=== PATIENT | male | born 1945 ===

== ENCOUNTER 2017-11-02 11:19 | Outpatient (CLI) | payer OTHER ==
[2017-11-02] MEDS ORDERED: MEPERIDINE 25 MG/ML SYR IVP PRN (11:46)
[2017-11-02] MEDS ORDERED: ONDANSETRON 4 MG/2 ML VIAL IVP ONE (11:46)
[2017-11-02] MEDS ORDERED: FLUMAZENIL 0.5 MG/5 ML MDV IVP PRN (11:46)
[2017-11-02] MEDS ORDERED: MIDAZOLAM 2 MG/2 ML VIAL IVP PRN (11:46)
[2017-11-02] MEDS ORDERED: NALOXONE HCL 0.4 MG/ML INJ IVP PRN (11:46)
[2017-11-02] MEDS ORDERED: fentaNYL 100 MCG/2 ML INJ IVP PRN (11:46)
[2017-11-02] MEDS ORDERED: fentaNYL 100 MCG/2 ML INJ ONE (11:50)
[2017-11-02] MEDS ORDERED: MIDAZOLAM 2 MG/2 ML VIAL ONE (11:50)
[2017-11-02] MEDS ORDERED: NALOXONE HCL 0.4 MG/ML INJ ONE (11:50)
[2017-11-02] MEDS ORDERED: FLUMAZENIL 0.5 MG/5 ML MDV IVP ONE (11:50)
[2017-11-02] MEDS ORDERED: NS 1,000 ML IV SCH (12:00)
[2017-11-02 12:21] LABS: PLATELET COUNT 233 10^3/uL (150-400)
--- NOTE | 2017-11-02 12:37 | PDGENHP ---
History & Physical Chief Complaint: tremor History of Present Illness: tremor Cardiorespiratory Assessment: lungs clear, heart rate regular
--- NOTE | 2017-11-02 12:38 | PDPROPOC ---
Sedation Plan of Care Sedation Plan of Care: vital signs stable, mental status noted, patient educated of risks, benefits, alternatives, patient can tolerate sedation ASA Classification: ASA 1 Planned drugs: fentanyl, midazolam Mallampati Score: Class 2 Mallampati Reference Image: Patient passed 3-3-2 rule?: Yes
[2017-11-02] MEDS ORDERED: GADOBUTROL 10 ML VIAL IVP ONE (12:50)
[2017-11-02 13:58] VITALS: BP 137/72
== END 2017-11-02 14:05 | disposition home or self-care (01) ==
LOC: FIMAGING 11:19
PROVIDERS: ATTEND Physician Assistant Surgical
DX: G31.9 Degenerative disease of nervous system, unspecified (principal); R90.82 White matter disease, unspecified
CPT/HCPCS: 70553; 99152; A9585; J2250; J3010; J2310

== ENCOUNTER 2017-11-10 05:50 | Inpatient (IN) | payer OTHER ==
--- NOTE | 2017-11-01 16:38 | GHP ---
[f rep st] HISTORY AND PHYSICAL DATE OF ADMISSION: 11/10/2017 DATE OF SURGERY: November 10. HISTORY OF PRESENT ILLNESS: The patient is a 71-year-old male with essential tremor. He has had his tremor for 35-40 years. The tremor is primarily in the left arm and rarely in the right arm. The tremor is worse with stress, aggravation, and movement. He denies rigidity or bradykinesia. He currently takes primidone for tremor control. Medication is still somewhat effective. He is right-handed but states his left-hand tremor is worse and prevents him from completing his daily activities with ease. PAST MEDICAL HISTORY: Type 2 diabetes, hypertension, melanoma, heart disease. PAST SURGICAL HISTORY: Prostate surgery, foot surgery, anorectal abscess, removal of melanoma, appendectomy. FAMILY HISTORY: The patient admits to heart disease. SOCIAL HISTORY: The patient denies alcohol use and admits to being a former smoker. He quit 38 years ago. ALLERGIES: Metformin. HOME MEDICATIONS: Primidone, lisinopril, hydralazine, multivitamin, glipizide, gemfibrozil, Bystolic, aspirin. REVIEW OF SYSTEMS: Negative except for what is mentioned in the HPI. PHYSICAL EXAM: Patient seen, examined, appears in no apparent distress. Mood and affect are appropriate. Alert and oriented. Pupils equal and reactive. Extraocular movements are intact. Facial expression is symmetrical. Tongue is midline with protrusion. Hearing is grossly intact. Speech is fluent without dysarthria. Muscle strength is well preserved in his upper and lower extremities with 5/5. Sensation is intact to light touch. He has left greater than right hand intention tremor. ASSESSMENT AND PLAN: In summary, the patient is a 71-year-old male with essential tremor. He has been deemed a suitable candidate to proceed with deep brain stimulation for improvement of his tremor. He has had a neuropsychological evaluation by Dr. Domínguez who did not find any contraindications. The patient is right-handed, but his left-hand tremor prevents him from easily performing his daily activities. We, therefore, have decided to move forward with unilateral deep brain stimulation, treating the left hand first with placement of a right deep brain stimulation lead. The risks, benefits, and procedure were discussed in detail with the patient. The patient has agreed and consented to proceed with right deep brain stimulation VIM lead placement. All the patient's questions and concerns were addressed and answered. /[id number]/MODL MTDD
[2017-11-10] MEDS ORDERED: CEFUROXIME 1,500 MG in STERILE WATER INJ 17 ML IV ONE ×2 (06:00→10:30)
[2017-11-10] MEDS ORDERED: LIDOCAINE 1% 2 ML INJ ID PRN (06:03)
[2017-11-10] MEDS ORDERED: LR 1,000 ML IV ONE (06:03)
[2017-11-10 07:23] LABS: PLATELET COUNT 188 10^3/uL (150-400)
[2017-11-10] MEDS ORDERED: EPINEPHrine 1 MG/ML INJ ONE (07:29)
[2017-11-10] MEDS ORDERED: BUPIVACAINE 0.25% 30 ML SDV ONE (07:29)
[2017-11-10] MEDS ORDERED: THROMBIN (BOVINE) 20,000 UNIT VIAL TP ONE (07:30)
[2017-11-10] MEDS ORDERED: GENTAMICIN SULFATE 80 MG/2 ML VIAL ONE (07:30)
[2017-11-10] MEDS ORDERED: POVIDONE-IODINE 30 GM OINTTUBE TP ONE (07:30)
[2017-11-10] MEDS ORDERED: CHLORHEXIDINE GLUC HIBICLENS 118 ML BTL TP ONE (07:30)
[2017-11-10 07:39] LABS: PROTIME(PATIENT) 13.4 SEC (12.0-15.0)
--- NOTE | 2017-11-10 07:39 | PDHPUP ---
History & Physical Update H&P update statement: This history and physical update is based on an assessment of the patient which was completed after admission or registration (within 24 hours), but prior to the surgery/procedure. H&P update: H&P reviewed & patient examined, no change in patient's condition since H&P completed
--- NOTE | 2017-11-10 07:56 | PDANEPAE ---
ANE Past Medical History - Cardiovascular History Hx Hypertension: Yes Hx Arrhythmias: No Hx Chest Pain: No Hx Coronary Artery / Peripheral Vascular Disease: No Hx CHF / Valvular Disease: No Hx Palpitations: No Cardiovascular History Comment: seen at [facility]- will obtain records - Pulmonary History Hx COPD: No Hx Asthma/Reactive Airway Disease: No Hx Recent Upper Respiratory Infection: No Hx Oxygen in Use at Home: No Hx Sleep Apnea: No Sleep Apnea Screening Result - Last Documented: Positive Pulmonary History Comment: greta triggers - Neurologic History Hx Cerebrovascular Accident: No Hx Seizures: No Hx Dementia: No Neurologic History Comment: left arm- essential tremor. unable to use left hand - Endocrine History Hx Diabetes: Yes Hypothyroid: No Hyperthyroid: No Obesity: yes, mild Endocrine History Comment: Type 2 - Renal History Hx Renal Disorders: No Renal History Comment: bph. hx of surgery to remove scar tissue - Liver History Hx Hepatic Disorders: No - Neurological & Psychiatric Hx Hx Neurological and Psychiatric Disorders: No - Cancer History Hx Cancer: Yes Cancer History Comment: Melanoma mole removal - Congenital Disorder History Hx Congenital Disorders: No - GI History GERD: no Hx Gastrointestinal Disorders: No - Other Health History Other Health History: wears reading glasses - Chronic Pain History Chronic Pain: No - Surgical History Prior Surgeries: Appendectomy 10/1980. Melanoma mole removal- 06/1990, 2000. Rectal abscess 08/2007. Plantar fasciitis surgery right foot 01/2010; left foot 03/2016. Cataract surgery b/l eyes 10/2014. Prostate surgery 01/2017 ANE Review of Systems Review of Systems: - Exercise capacity METS (RN): 4 METS - Systems Constitutional: Reports: no symptoms EENMT: Reports: no symptoms Cardiac: Reports: no symptoms Respiratory: Reports: no symptoms Gastrointestinal: Reports: no symptoms Genitourinary: Reports: no symptoms Muscolosketal: Reports: no symptoms Skin: Reports: no symptoms Neurological: Reports: tremors Hematologic/Lymphatic: Reports: no symptoms Immunologic/Allergy: Reports: no symptoms ANE Patient History - Allergies Allergies/Adverse Reactions: metformin Allergy (Severe, Verified 10/25/17 13:30) acid reflux and heartburn - Home Medications Home Medications: Aspirin EC [Aspirin EC 81 mg (*)] 81 mg PO DAILY 11/10/17 [Last Taken 11/01/17] C/E/Zn/Cu/OM3/DHA/EPA/LUT/ZEAX [Preservision Areds 2 Softgel] 1 each PO BID 05/20 [Last Taken 11/09/17 20:00] Gemfibrozil [Lopid 600 MG (*)] 600 mg PO BID 11/10/17 [Last Taken 11/09/17 20:00 ] Herbals/Supplements -Info Only 1 ea PO DAILY 11/10/17 [Last Taken Unknown] Lisinopril [Zestril 40 mg (*)] 40 mg PO DAILY 11/10/17 [Last Taken 11/09/17] Nebivolol HCl [Bystolic] 10 mg PO BID 11/10/17 [Last Taken 11/09/17 20:00] Primidone [Mysoline 50mg (RX)] 50 mg PO BID 11/10/17 [Last Taken 11/03/17] glipiZIDE [Glipizide ER] 5 mg PO HS 11/10/17 [Last Taken 11/09/17] hydrALAZINE [Apresoline 50 mg (*)] 50 mg PO TID 11/10/17 [Last Taken 11/10/17 04 :30] - NPO status NPO Since - Liquids (Date): 11/09/17 NPO Since - Liquids (Time): 20:30 NPO Since - Solids (Date): 11/09/17 NPO Since - Solids (Time): 17:00 - Anes Hx Anes Hx: no prior problems - Smoking Hx Smoking Status: Never smoked Marijuana use: No - Family Anes Hx Family Anes Hx: neg - N/A Family Hx Anesthesia Complications: None ANE Labs/Vital Signs - Labs Result Diagrams: 11/10/17 Unknown 11/10/17 07:00 - Vital Signs Blood Pressure: 144/70 Heart Rate: 55 Respiratory Rate: 18 O2 Sat (%): 94 Height: 180.34 cm Weight: 106.594 kg ANE Physical Exam - Airway Neck exam: FROM Mallampati Score: Class 3 Mouth exam: normal dental/mouth exam - Pulmonary Pulmonary: no respiratory distress, no rales or rhonchi, clear to auscultation - Cardiovascular Cardiovascular: regular rate and rhythym, no murmur, rub, or gallop - ASA Status ASA Status: III ANE Anesthesia Plan Anesthesia Plan: MAC Lines/Monitors: arterial line Total IV Anesthesia: Yes
[2017-11-10] MEDS ORDERED: PROPOFOL 200 MG/20 ML VIAL ONE (08:19)
[2017-11-10] MEDS ORDERED: fentaNYL 100 MCG/2 ML INJ ONE ×2 (08:19→12:21)
[2017-11-10] MEDS ORDERED: DEXMEDETOMIDINE HCL 400 MCG in NS 100 ML IV ONE (08:30)
[2017-11-10] MEDS ORDERED: LIDOCAINE 2% 5 ML SDV ONE (08:32)
[2017-11-10] MEDS ORDERED: epHEDrine SULFATE 10 MG/ML SYR ONE ×3 (08:58→11:23)
[2017-11-10] MEDS ORDERED: epHEDrine SULFATE 10 MG/ML SYR IVP PRN (09:25)
[2017-11-10] MEDS ORDERED: ONDANSETRON 4 MG/2 ML VIAL IVP PRN ×2 (09:25→12:17)
[2017-11-10] MEDS ORDERED: NALOXONE HCL 0.4 MG/ML INJ IVP PRN (09:25)
[2017-11-10] MEDS ORDERED: LR 500 ML IV PRN (09:25)
[2017-11-10] MEDS ORDERED: HYDROCODONE/APAP 5/325 TAB PO PRN (09:25)
[2017-11-10] MEDS ORDERED: PHENYLEPHRINE HCL 100 MCG/ML SYR IVP PRN (09:25)
[2017-11-10] MEDS ORDERED: ACETAMINOPHEN 500 MG TAB PO PRN (09:25)
[2017-11-10] MEDS ORDERED: LACTULOSE 20 GM/30 ML UDCUP PO PRN (12:17)
[2017-11-10] MEDS ORDERED: MAGNESIUM HYDROXIDE 30 ML UDCUP PO PRN (12:17)
[2017-11-10] MEDS ORDERED: BISACODYL 10 MG SUPP PR PRN (12:17)
[2017-11-10] MEDS ORDERED: POLYETHYLENE GLYCOL 3350 17 GM PKT PO PRN (12:17)
[2017-11-10] MEDS ORDERED: ACETAMINOPHEN 325 MG TAB PO PRN (12:17)
[2017-11-10] MEDS ORDERED: NS W/ 20 KCl/L 1,000 ML IV SCH (12:30)
--- NOTE | 2017-11-10 13:10 | POSTANESTH ---
Post Anesthetic Evaluation Cardiovascular Status: Similar to Pre-Op Cond Respiratory Status: Normal, Stable Level of Consciousness/Mental Status: Can Participate in Eval Pain Control: Adequate, Prn Tx Ordered Nausea/Vomiting Control: Adequate, Prn Tx Ordered Complications Possibly Related to Anesthesia: None Noted
[2017-11-10] MEDS ORDERED: ACETAMINOPHEN 500 MG TAB ONE (13:11)
--- NOTE | 2017-11-10 13:20 | GOP ---
[f rep st] OPERATIVE REPORT DATE OF OPERATION: 11/10/2017 SURGEON: Celsa Parks DO NEUROSURGEON: Celsa Parks DO YARN WEIGHT AND STRENGTH TESTER: Faviola Simon PA-C PREOPERATIVE DIAGNOSIS: Essential tremor. POSTOPERATIVE DIAGNOSIS: Essential tremor. PROCEDURE PERFORMED: Right deep brain stimulator lead placement with [place] lead to right v entral intermediate nucleus for left tremor. FINDINGS: SPECIMENS: None. ESTIMATED BLOOD LOSS: 25 mL. INDICATIONS: This is a 71-year-old male with 30 years of benign essential tremor. He was evaluated by the multidisciplinary planning team and found to be a good candidate for deep brain stimulation to the VIM nucleus. DESCRIPTION OF PROCEDURE: He was identified and consented. Sites were marked. Brought to the [facility] room. Anesthetized under local with MAC. Hair was clipped with the OR clippers. The head was cleansed with ChloraPrep. The pin sites were anesthetized with 0.25% Marcaine with epinephrine. The pins were cleansed with povidone iodine ointment. We placed the [place]ell frame in a stereotactic fas hion and brought him downstairs. Performed a stereotactic CT with a localizer box. Brought him back upstairs. Positioned him appropriately on the table. Merged the stereotactic CT to the preoperativ e plan in the [employer] software. Stereotactic coordinates: The ACPC distance was 27.11. T he X4 target was 12.43, Y was 6.9, and Z was 0.12. Entry axis was 60.6, Y was 117, and Z was 44.7. Angle was 22.4 degrees off midsagittal and 53.4 off midaxial. This corresponded to Le[place]ell frame aco coordinator rdinates of X of 86.5, Y of 83.5, Z of 120, ring of 66 degrees, and arc of 72.5 degrees. He was prep ped and draped in the usual sterile fashion. These were all set and triple-checked by all providers in the room. The incision site was marked using the Leksell frame coordinates. A half-patterson incision was created and anesthetized with 0.25% Marcaine with epinephrine. An incision was made with a 10 b lade. The periosteum was elevated with a periosteal elevator. Pilar clips were placed. Meticulous hemostasis was obtained with bipolar cautery. We then marked the bone opening, created a barge pilot hole, and then a 14 mm bur hole in the appropriate fashion. Waxed these edges with bone wax. Placed the guardian and locked it into place with 5 mm Synthes screws. Verified the clipping mechanism. Clippe d and locked. Opened the dura sharply with an 11 blade, coagulating it. Gently introduced a center and anterior tract cannula, and stylet. Placed Gelfoam and DuraSeal, and then performed microelectro de recording. Please refer to the dictation by Faviola Simon for microelectrode recording. She wa s the business development assistant on this case. She was required, as I needed one person to remain scrubbed well the o ther person performed microelectrode recording. So, I am the american sign language interpreter of the microelectrode recor elinor, and she was able to then home manipulate the settings and stay scrubbed to manage the drive. Ming wilde had excellent center tract. However, when stimming 3 above target, we got some lateral side effect s, so we elected to run a medial tract. We drove all the way up to center. Removed the Gelfoam and DuraSeal. Placed the cannula. The anterior stylet was removed and replaced it in the medial tract. Locked it into place. Removed the internal stylette. Placed a microelectrode. Performed microelec trode recording along this medial track and had a better track with macro stim that did not reveal th ose lateral side effects. We elected to test the lead here. The bottom was placed at target. So, ming wilde drove to target. Removed the microelectrode. Placed the cannula for the center. Measured and nicole ruiz the lead. Tested the lead. All impedances were good. He had actually such a strong lesional ef fect, we had no tremor to test. However, we had low to no side effects. Very programmable lead. El ected to leave the lead here. Placed the bomb sites. Took an x-ray with the bomb sites in place. R etracted the cannula. Placed the clipping mechanism. Clipped and locked the lead. Removed the styl et. Brought the lead down and out, placing it through the groove, and placed the cap over the guardi an system. Took another x-ray. It had not migrated. Placed the extension cap over the lead. Vanessa d into place with the torque wrench, protecting that contact. Tunneled it posterior and coiled the l ead posterior and around the incision. Took a final x-ray. There was no migration. Copiously irrig ated with over a liter of gentamicin-infused saline. Closed the galea with 2-0 Vicryl pop-offs. The skin was closed with a 3-0 running nylon. The wound was dressed with Xeroform and Telfa. Stapled d own. The frame was removed, and the patient's head was wrapped. Tolerated the procedure well. Had excellent lesional effect. There were no complications. FLUIDS: 1300 mL of crystalloid. URINE OUTPUT: 300 mL. DRAINS: None. COMPLICATIONS: None. /[id number]/MODL
[2017-11-10] MEDS: HYDROCODONE/APAP 5/325 TAB PO PRN ×2 (14:36→23:40)
--- NOTE | 2017-11-10 14:40 | PDMN ---
Medical Necessity Medical necessity: [facility] IP only surgery; cpt 15908 Neurosurgery-Deep Brain Stimulator Placement
--- NOTE | 2017-11-10 15:36 | GPN ---
[f rep st] PROCEDURE NOTE DATE OF PROCEDURE: 11/10/2017 PREPROCEDURE DIAGNOSIS: Essential tremor. POSTPROCEDURE DIAGNOSIS: Essential tremor. PROCEDURE PERFORMED: Intraoperative functional subcortical mapping by microelectrode recording and stimulation. COMPLICATIONS: None. INDICATIONS FOR PROCEDURE: Determination of optimal electrode lead placement for deep brain stimulation therapy for essential tremor to the VIM. DESCRIPTION OF PROCEDURE: Following the incision on the right, a bur hole was drilled. The arc was then arranged with the following coordinates: X 86.5, Y 83.5, Z 120, ring 66, arc 72.5. The recording microelectrode was then slowly advanced into the brain using a central and anterior tract. The anterior tract was silent. The center tract, there was evidence of cell bursts at 13 above target and 11 above target. At 7.5 above target, there was change in stimulation with left foot dorsiflexion. At 6.1 above target, there was change in stimulation with elbow extension and possibly change in stimulation with deep touch at the shoulder at 2.5 above target. We elected to then proceed with macro stimulation utilizing the center tract. We stimulated at 3 above target and with low voltage, the patient was experiencing a sudden jolt and tingling on the left side of his body. We therefore decided to go ahead and proceed with macro stimulation at target and patient had persistent tingling at 3.0 amplitude. Due to the low threshold of side effects, we elected to proceed with a medial tract. The microelectrode was advanced into the brain. There was evidence of change in stimulation with elbow extension at 9 above target. With macro stimulation, the patient had transient tingling in his left hand up to 3.0. With these recordings, we felt we were in a good location and thus placed the lead. With test stimulation, the patient had a lesional affect and thus did not have any left hand tremor for us to test during surgery. We therefore tested for side effects alone. At 1 negative, 2 positive, patient had transient tingling starting at 0.5 in his left hand and it became persistent at 2.0, impedance was 1544, at 2 negative, 3 positive, patient began having transient tingling in his left hand at 1.0 and up to 2.00 milliamps, with impedance 1638. At 3 negative, 4 positive, patient had no side effects up to 2.00 milliamps with impedance 1800. At 4 negative, 3 positive, patient had no side effects up to 2.0 milliamps with impedance 1800. With this microelectrode recording, as well as test stimulation, elected to place the lead in this location with the bottom of the lead at target. The patient tolerated the procedure well and was transferred to the recovery room. /[id number]/MODL MTDD
[2017-11-10] MEDS: CEFUROXIME 1,500 MG in STERILE WATER INJ 17 ML IV SCH (16:29)
[2017-11-10] MEDS: hydrALAZINE 20 MG/ML VIAL IVP PRN ×2 (17:22→23:39)
[2017-11-10] MEDS: NEBIVOLOL HCL 5 MG TAB PO SCH (20:02)
[2017-11-10] MEDS: GEMFIBROZIL 600 MG TAB PO SCH (20:02)
[2017-11-10] MEDS: SENNOSIDES/DOCUSATE SODIUM TAB PO SCH (20:03)
[2017-11-10] MEDS ORDERED: NON-FORMULARY NEW DRUG (Nebivolol Hcl [Bystolic] 10 MG) PO SCH (21:00)
[2017-11-11] MEDS: CEFUROXIME 1,500 MG in STERILE WATER INJ 17 ML IV SCH (01:54)
[2017-11-11] MEDS: hydrALAZINE 20 MG/ML VIAL IVP PRN (04:54)
[2017-11-11] MEDS: HYDROCODONE/APAP 5/325 TAB PO PRN ×2 (04:56→09:18)
[2017-11-11] MEDS ORDERED: LISINOPRIL 40 MG TAB PO SCH (09:00)
[2017-11-11] MEDS: SENNOSIDES/DOCUSATE SODIUM TAB PO SCH (09:13)
[2017-11-11] MEDS: NEBIVOLOL HCL 5 MG TAB PO SCH (09:15)
[2017-11-11] MEDS: GEMFIBROZIL 600 MG TAB PO SCH (09:16)
[2017-11-11 09:17] VITALS: BP 159/77
--- NOTE | 2017-11-11 09:29 | NEUSURGPN ---
Assessment/Plan: A: 71 yo M s/p right VIM DBS for ET P: Encourage ambulation Keep SBP <140 - continue home antihypertensives Pain management DC to home later today Call NS with any questions Subjective: Pt resting in bed, had some headache pain this am now improving Objective: AAOx3 NAD VSS MAEx4 Motor 5/5 BUE/BLE Headwrap on +LT Urinary Catheter in Place: No Neurosurgery Physical Exam - Vitals, I&O, Labs I and O 11/10/17 11/11/17 11/12/17 05:59 05:59 05:59 Intake Total 1540 Output Total 800 Balance 740 Weight 106.594 kg Intake: Oral (ml) 240 IV Intake (ml) 1300 Output: Urine (ml) 775 Catheter 300 Urinal 475 Estimated Blood Loss (ml) 25 Other: Intake Quantity Yes Sufficient Vital Signs Temp Pulse Resp BP Pulse Ox 37.2 C 62 16 159/77 H 94 11/11/17 07:24 11/11/17 09:15 11/11/17 07:24 11/11/17 09:16 11/11/17 07:24 Laboratory Results 11/10/17 Unknown 11/10/17 07:00 ICD10 Worksheet Patient Problems: Problems Problem Status Onset Essential tremor Acute - ICD10 Problem Qualifiers (1) Essential tremor
--- NOTE | 2017-11-11 16:26 | ASMTLACE ---
STANLEY Comorbidities - select Answers: Any tumor (including all that apply lymphoma or leukemia) Coronary Artery Disease Diabetes (uncontrolled or controlled) Other Notes: HTN # of Emergency department Answers: 0 visits in the last 6 months Score: 6 Date Signed: 11/11/2017 10:51 AM Electronically Signed By:Lauren Sal RN
[2017-11-11] MEDS ORDERED: glipiZIDE XL 5 MG TAB PO SCH (21:00)
[2017-11-13] MEDS ORDERED: ENOXAPARIN 40 MG/0.4 ML SYR SC SCH (09:00)
--- NOTE | 2017-11-15 13:41 | ASDISCHSUM ---
Discharge Information Plan Status:Home with No Needs Medically Cleared to Leave:11/11/2017 Discharge Date:11/11/2017 CM D/C Disposition:Home, Routine, Self-Care ADT D/C Disposition:Home, Routine, Self-Care Projected Discharge Date:11/11/2017 Transportation at D/C:Family Discharge Delay Reason: Follow-Up Date:11/11/2017 Discharge Slot: Final Diagnosis: Placement Information Patient Contact Information Contact Name:BENJAMIN Relationship:Mahendra Address: Work Phone: City: [place] Phone: State/[employer] Code: Email: Financial Information Financial Class:Medicare Primary Plan Desc:MEDICARE INPATIENT Primary Plan Number:[id number] Secondary Plan Desc:[facility] Secondary Plan Number:[id number] Assessment Information Case Management Discharge Plan Note Case Management Discharge Discharge Order Complete? Answers: Yes Patient to Obtain Answers: via Family Medications Transportation Arranged Answers: Family/Friends Family Notified Answers: Yes Notes: per pt Discharge Comments Notes: 11/11/2017 Case Management Note Met w/pt to discuss d/c needs. Pt lives with Mira who suffers from dementia. Sister in Law Maxine is to stay with pt for approximately one week to assist with recovery. James Haji [phone] is able to transport pt home and provide additional assistance. There are no further case management d/c needs identified. Pt to d/c independent with follow up as directed. Date Signed: 11/11/2017 10:29 AM Electronically Signed By:Lauren Sal RN Intervention Information
--- NOTE | 2017-11-16 14:03 | GDS ---
[f rep st] DISCHARGE SUMMARY ADMITTING DIAGNOSIS: Essential tremor. DISCHARGE DIAGNOSIS: Essential tremor. PROCEDURE: Right deep brain stimulator lead placement on November 10. HOSPITAL COURSE: The patient is a 71-year-old male with 30 years of essential tremor. He elected to proceed with surgical intervention with implant of deep brain stimulation. He underwent surgery by Dr. Celsa Parks on November 10, 2017, with implant of right deep brain stimulator lead. He tolerated the surgery well without complication and was transferred to the floor for further pain management. His postoperative head CT was unremarkable for any acute hemorrhage. On the following morning, he was t olerating a diet, voiding without difficulty, pain controlled, and medically stable, and thus, he was deemed suitable for discharge. He was discharged to home on November 11. DISCHARGE INSTRUCTIONS: The patient was asked to follow up with Dr. Celsa Parks in 2 weeks for sutu re removal and wound check. He is to avoid strenuous activities, such as bending or lifting more bryant n 15 pounds. DISCHARGE MEDICATIONS: The patient was asked to resume his home medications and can take Tylenol or Venus as needed for pain relief. /[id number]/MODL
== END 2017-11-11 11:35 | disposition home or self-care (01) | DRG 27 ==
LOC: F3N 05:50
PROVIDERS: ADMIT Neurological Surgery; ATTEND Neurological Surgery
PROC: 00H03MZ Insertion of Neurostimulator Lead into Brain, Percutaneous Approach (ICD-10-PCS; principal; 2017-11-10 08:15)
DX: G25.0 Essential tremor (principal); E11.9 Type 2 diabetes mellitus without complications; I10 Essential (primary) hypertension; Z87.891 Personal history of nicotine dependence
CPT/HCPCS: C1713; C1778; J0171; J0360; J0697; J1580; J2704; J3010

== ENCOUNTER 2017-12-08 05:38 | Day surgery (SDC) | payer OTHER ==
[2017-12-08] MEDS ORDERED: ceFAZolin 2 GM/DEXTROSE 100 ML IV ONE (06:00)
[2017-12-08] MEDS ORDERED: ACETAMINOPHEN 500 MG TAB PO ONE (06:00)
[2017-12-08] MEDS ORDERED: LR 1,000 ML IV ONE (06:01)
--- NOTE | 2017-12-08 06:39 | PDANEPAE ---
ANE History of Present Illness tremors here for DBS stage 2 ANE Past Medical History - Cardiovascular History Hx Hypertension: Yes Hx Arrhythmias: No Hx Chest Pain: No Hx Coronary Artery / Peripheral Vascular Disease: No Hx CHF / Valvular Disease: No Hx Palpitations: No Cardiovascular History Comment: seen at [facility]- records on paper chart - Pulmonary History Hx COPD: No Hx Asthma/Reactive Airway Disease: No Hx Recent Upper Respiratory Infection: No Hx Oxygen in Use at Home: No Hx Sleep Apnea: Yes Sleep Apnea Screening Result - Last Documented: Positive Pulmonary History Comment: greta triggers - Neurologic History Hx Cerebrovascular Accident: No Hx Seizures: No Hx Dementia: No Neurologic History Comment: essental tremor- left arm, unable to use left hand - Endocrine History Hx Diabetes: Yes Endocrine History Comment: type 2 - Renal History Hx Renal Disorders: Yes Renal History Comment: bph. hx of surgery to remove scar tissue - Liver History Hx Hepatic Disorders: No - Neurological & Psychiatric Hx Hx Neurological and Psychiatric Disorders: No - Cancer History Hx Cancer: Yes Cancer History Comment: skin ca removed x2 - Congenital Disorder History Hx Congenital Disorders: No - GI History Hx Gastrointestinal Disorders: No - Other Health History Other Health History: wears reading glasses - Chronic Pain History Chronic Pain: No - Surgical History Prior Surgeries: 11/10/17 DBS stage 1 with Parks. appy 10/1980. mole removal - melanoma 06/1990, 08/2000. rectal abscess- emergency surg 08/2007. plantar fascitis- right foot 01/2010 left 03/2016. prostate surgery 01/2017. bilateral cataracts 10/2014 ANE Review of Systems Review of Systems: - Exercise capacity METS (RN): 4 METS ANE Patient History - Allergies Allergies/Adverse Reactions: metformin Allergy (Severe, Verified 11/23/17 18:46) acid reflux and heartburn - Home Medications Home Medications: C/E/Zn/Cu/OM3/DHA/EPA/LUT/ZEAX [Preservision Areds 2 Softgel] 11/10/17 [Last Taken 12/07/17] Gemfibrozil [Lopid 600 MG (*)] BID 11/10/17 [Last Taken 12/07/17] Lisinopril [Zestril 40 mg (*)] 11/10/17 [Last Taken 12/07/17] Nebivolol HCl [Bystolic] BID 11/10/17 [Last Taken 12/08/17] glipiZIDE [Glipizide ER] HS 11/10/17 [Last Taken 12/07/17] hydrALAZINE [Apresoline 50 mg (*)] TID 11/10/17 [Last Taken 12/08/17] - NPO status NPO Since - Liquids (Date): 12/07/17 NPO Since - Liquids (Time): 20:30 NPO Since - Solids (Date): 12/07/17 NPO Since - Solids (Time): 19:30 - Anes Hx Anes Hx: no prior problems - Smoking Hx Smoking Status: Former smoker - Alcohol Use Alcohol Use: None - Family Anes Hx Family Anes Hx: none Family Hx Anesthesia Complications: none ANE Labs/Vital Signs - Vital Signs Blood Pressure: 139/76 Heart Rate: 51 Respiratory Rate: 14 O2 Sat (%): 93 Height: 180.34 cm Weight: 106.594 kg ANE Physical Exam - Airway Neck exam: FROM Mallampati Score: Class 2 Mouth exam: normal dental/mouth exam - Pulmonary Pulmonary: no respiratory distress, clear to auscultation - Cardiovascular Cardiovascular: regular rate and rhythym, no murmur, rub, or gallop - ASA Status ASA Status: III ANE Anesthesia Plan Anesthesia Plan: general endotracheal anesthesia Lines/Monitors: arterial line
[2017-12-08] MEDS ORDERED: MIDAZOLAM 2 MG/2 ML VIAL IVP ONE (06:42)
[2017-12-08] MEDS ORDERED: LIDOCAINE 1% 300 MG/30 ML SDV ONE (06:48)
[2017-12-08] MEDS ORDERED: PROPOFOL 200 MG/20 ML VIAL ONE (06:48)
[2017-12-08] MEDS ORDERED: GENTAMICIN SULFATE 80 MG/2 ML VIAL ONE (06:48)
[2017-12-08] MEDS ORDERED: fentaNYL 100 MCG/2 ML INJ ONE ×2 (06:48→08:41)
[2017-12-08] MEDS ORDERED: BUPIVACAINE 0.25% 30 ML SDV ONE (06:48)
[2017-12-08] MEDS ORDERED: EPINEPHrine 1 MG/ML INJ ONE (06:48)
[2017-12-08] MEDS ORDERED: REMIFENTANIL HCL 1 MG VIAL ONE (06:48)
[2017-12-08] MEDS ORDERED: CHLORHEXIDINE GLUC HIBICLENS 118 ML BTL TP ONE (06:48)
[2017-12-08] MEDS ORDERED: PROPOFOL/EMULSION 500 MG/50 ML BOTTLE IV ONE (06:48)
[2017-12-08] MEDS ORDERED: ROCURONIUM 50 MG/5 ML VIAL ONE (06:58)
[2017-12-08] MEDS ORDERED: LIDOCAINE 2% 100 MG/5 ML SYR ONE (06:58)
[2017-12-08] MEDS ORDERED: DEXAMETHASONE 4 MG/ML VIAL ONE (07:43)
[2017-12-08] MEDS ORDERED: ONDANSETRON 4 MG/2 ML VIAL ONE (07:43)
[2017-12-08] MEDS ORDERED: ONDANSETRON DISINTEGRATING 4 MG TAB PO PRN (08:25)
[2017-12-08] MEDS ORDERED: HYDROCODONE/APAP 5/325 TAB PO PRN ×2 (08:25→08:27)
[2017-12-08] MEDS ORDERED: ACETAMINOPHEN 500 MG TAB PO PRN (08:27)
[2017-12-08] MEDS ORDERED: oxyCODONE IR 5 MG TAB PO PRN (08:27)
[2017-12-08] MEDS ORDERED: ONDANSETRON 4 MG/2 ML VIAL IVP PRN (08:27)
[2017-12-08] MEDS ORDERED: PROMETHAZINE HCL 25 MG/ML INJ IVP PRN (08:27)
[2017-12-08] MEDS ORDERED: NALOXONE HCL 0.4 MG/ML INJ IVP PRN (08:27)
--- NOTE | 2017-12-08 08:27 | POSTANESTH ---
Post Anesthetic Evaluation Cardiovascular Status: Normal, Stable, Similar to Pre-Op Cond Respiratory Status: Normal, Stable, Similar to Pre-op Cond. Level of Consciousness/Mental Status: Can Participate in Eval, Alert and Oriented Pain Control: Adequate, Prn Tx Ordered Nausea/Vomiting Control: Adequate, Prn Tx Ordered Complications Possibly Related to Anesthesia: None Noted
--- NOTE | 2017-12-08 08:33 | POSTOPPROG ---
Post Op Note Date of Operation: 12/08/17 Surgeon: [facility] Attendant: Faviola Simon PA-C Anesthesia: GET(General Endotracheal) Pre-op Diagnosis: Essential tremor Post-op Diagnosis: Essential tremor Procedure: Right DBS generator implant Inf/Abcess present in the surg proc area at time of surgery?: No Depth: Superfical (Skin SQ) EBL: Minimal Plan Plan: 72 yo male s/p right DBS generator implant for ET - neuro checks - pain control - advance diet as tolerated - dc home today Exam Patient see in recovery Incisions with dressings c/d/i
--- NOTE | 2017-12-08 08:35 | GOP ---
[f rep st] OPERATIVE REPORT DATE OF OPERATION: SURGEON: Celsa Parks DO ASSISTANT COUNSEL: Faviola Simon PA-C. PREOPERATIVE DIAGNOSIS: Essential tremor. POSTOPERATIVE DIAGNOSIS: Essential tremor. PROCEDURE PERFORMED: 1. Right deep brain stimulator generator placement with [employer] generator connection to edna lyon right VIM lead. 2. Impedances. FINDINGS: SPECIMENS: None. ESTIMATED BLOOD LOSS: 25 mL. INDICATIONS: This is a 72-year-old male with essential tremor, who has had VIM lead placement and el ects to move forward with his generator. DESCRIPTION OF PROCEDURE: He was identified, consented. Sites were marked. Brought to the operatin g room, anesthetized under general endotracheal tube anesthesia. Hair was clipped with the OR clippe rs. Incision sites were marked. He was prepped and draped in the usual sterile fashion. Incision w as anesthetized with 0.5% Marcaine with epinephrine. Incision was made with a 10 blade. Hemostasis was obtained with bipolar cautery. The lead extension cap was dissected out with Metzenbaum scissors just at the head. At the chest wall, an incision was made with a 10 blade and a pocket was created with Metzenbaum scissors. Meticulous hemostasis was obtained. We tunneled from the head to the ches t in a single pass, bringing the extension wire up and out, placing the lead extension into the gener ator, and a plug into the posterior aspect of the generator. We then removed the extension cap, gent ly dried the lead, placed it into the lead extension, locked it into place with a torque wrench. Sosa d it flat against the skull, checked impedances. All impedances were good. Locked all of the screws down. Rechecked impedances. All impedances were good. Brought the lead extension complex flat aga inst the skull, coiled the lead posterior around the generator, sutured the generator to the chest wa ll with 2-0 silk stitches at 2 positions. Copiously irrigated each incision with over a liter of gen tamicin-infused saline. Closed the galea with 2-0 Vicryl pop-offs and the skin with 3-0 running nylo n at the chest. We closed the fascia with 2-0 Vicryl pop offs, subcutaneous layer of 3-0 Vicryl pop- offs. The skin was closed with 4-0 running Monocryl and Dermabond. Patient tolerated procedure well . Head incision was dressed with Xeroform and gauze. No complications. FLUIDS: 800 mL of crystalloid. URINE OUTPUT: None. DRAINS: None. COMPLICATIONS: None. /[id number]/MODL
[2017-12-08] MEDS: fentaNYL 100 MCG/2 ML INJ IVP PRN ×2 (08:44→08:53)
[2017-12-08] MEDS ORDERED: ACETAMINOPHEN 500 MG TAB ONE (09:11)
[2017-12-08] MEDS ORDERED: oxyCODONE IR 5 MG TAB ONE (09:11)
[2017-12-08 11:10] VITALS: BP 136/75
== END 2017-12-08 11:05 | disposition home or self-care (01) ==
LOC: FSGY 05:38
PROVIDERS: ATTEND Neurological Surgery
PROC: 0JH60BZ Insertion of Single Array Stimulator Generator into Chest Subcutaneous Tissue and Fascia, Open Approach (ICD-10-PCS; principal; 2017-12-08 07:15)
DX: G25.0 Essential tremor (principal); E11.9 Type 2 diabetes mellitus without complications; I10 Essential (primary) hypertension; N40.0 Benign prostatic hyperplasia without lower urinary tract symptoms; Z87.891 Personal history of nicotine dependence
CPT/HCPCS: C1767; C1787; C1883; J0171; J0690; J1100; J1580; J2001; J2250; J2405; J2704; J3010